=== PATIENT | female | born 2000 | race African-American/Black ===

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

== ENCOUNTER 2019-03-30 07:50 | Emergency (ER) | payer MEDICAID, SELFPAY | END 2019-03-30 09:10 | disposition home or self-care (01) | LOC: NAV ERS 07:50 | DX: J02.8 Acute pharyngitis due to other specified organisms (principal); J30.2 Other seasonal allergic rhinitis | CPT/HCPCS: 87081; 87430; 87804; 99283 ==

== ENCOUNTER 2019-10-13 18:43 | Emergency (ER) | payer OTHER ==
[2019-10-15 13:46] LABS: SARS-CoV-2 MS2 Positive; SARS-CoV-2 N Gene Negative; SARS-CoV-2 S Gene Negative; SARS-CoV-2 by NAA Not Detected (NotDetected); SARS-CoV-2 orf1ab Negative
== END 2019-10-13 19:22 | disposition home or self-care (01) ==
LOC: NAV ERS 18:43
DX: R11.2 Nausea with vomiting, unspecified (principal); J34.89 Other specified disorders of nose and nasal sinuses; Z20.828 Contact with and (suspected) exposure to other viral communicable diseases
CPT/HCPCS: 87635; 99284; U0003

== ENCOUNTER 2020-01-27 06:07 | Emergency (ER) | payer MEDICAID, OTHER ==
[2020-01-27 06:35] LABS: #Eosinphils 0.2 thou/uL (0.0-0.7); #Lymphocytes 2.2 thou/uL (1.20-3.40); #Monocytes 0.6 thou/uL (0.11-0.59); #Neutrophils 4.6 thou/uL (1.40-6.50); %Basophils 0.5 % (0.0-1.0); %Eosinophils 2.7 % (0.0-10.0); %Lymphocytes 28.6 % (28.0-48.0); %Monocytes 7.4 % (0.0-4.0); %Neutrophils 60.7 % (31.0-61.0); Hemoglobin 14.7 g/dL (12.0-16.0); Mean Corpuscular HGB CONC 33.8 g/dL (32.0-36.0); Mean Corpuscular Hemoglobin 31.8 pg (25.0-35.0); Mean Corpuscular Volume 94.1 fL (78.0-98.0); Mean Platelet Volume 7.7 fL (7.4-10.4); Platelet Count 233 thou/uL (130-400); RBC Distribution Width 10.9 % (11.5-14.5); Red Blood Cell (RBC) Count 4.61 mill/uL (4.00-5.20); White Blood Cell (WBC) Count 7.6 thou/uL (4.8-10.8)
[2020-01-27 06:46] LABS: BHCG - Serum Negative (NEGATIVE); Pregs Control Bar Appear? YES (CONTROL BAR)
[2020-01-27 07:02] LABS: ALT (SGPT) 30 U/L (8-55); AST (SGOT) 22 U/L (5-34); Albumin 4.2 g/dL (3.5-5.0); Alcohol Less than 10 mg/dL (Less than 10); Alkaline Phosphatase 74 U/L (40-100); Anion Gap 16 mmol/L (10-20); BUN (Urea Nitrogen) 16 mg/dL (7.0-18.7); Bilirubin, Total 0.7 mg/dL (0.2-1.2); Calc. Creatinine Clearance 0 mL/min (70-130); Calcium 9.3 mg/dL (7.8-10.44); Carbon Dioxide 20 mmol/L (22-29); Chloride 107 mmol/L (98-107); Estimated GFR-MDRD Greater than 90; Glucose 87 mg/dL (70-105); Potassium 3.7 mmol/L (3.5-5.1); Protein, Total 8.2 g/dL (6.0-8.3); Sodium 139 mmol/L (136-145)
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
== END 2020-01-27 08:30 | disposition home or self-care (01) ==
LOC: NAV ERS 06:07
DX: S43.402A Unspecified sprain of left shoulder joint, initial encounter (principal); S39.012A Strain of muscle, fascia and tendon of lower back, initial encounter; S80.02XA Contusion of left knee, initial encounter; V89.2XXA Person injured in unspecified motor-vehicle accident, traffic, initial encounter
CPT/HCPCS: 36415; 70450; 72125; 72128; 72131; 80053; 80307; 84703; 85025

== ENCOUNTER 2020-07-14 16:04 | Emergency (ER) | payer SELFPAY ==
[2020-07-14] MEDS ORDERED: Naproxen 500 MG TAB ONE (16:41)
== END 2020-07-14 18:03 | disposition home or self-care (01) ==
LOC: NAV ERS 16:04
DX: S92.402A Displaced unspecified fracture of left great toe, initial encounter for closed fracture (principal); X58.XXXA Exposure to other specified factors, initial encounter
CPT/HCPCS: 84550

== ENCOUNTER 2021-01-08 08:39 | Emergency (ER) | payer OTHER, SELFPAY ==
[2021-01-08 10:02] LABS: Pregnancy Test - Urine (BHCG) Negative (Negative); Pregu Control Background? CLEAR/WHITE (CLR/WHITE); Pregu Control Bar Appear? YES (CONTROL BAR); Specific Gravity 1.025 (1.002-1.036)
[2021-01-08] MEDS ORDERED: Ketorolac Tromethamine 60 MG/2 ML VIAL ONE (10:13)
== END 2021-01-08 10:36 | disposition home or self-care (01) ==
LOC: NAV ERS 08:39
DX: N92.6 Irregular menstruation, unspecified (principal)
CPT/HCPCS: 81025; 96372; 99284; J1885

== ENCOUNTER 2021-01-09 06:37 | Emergency (ER) | payer SELFPAY ==
[2021-01-09 07:39] LABS: #Basophils 0.1 thou/uL (0.0-0.2); #Eosinphils 0.4 thou/uL (0.0-0.7); #Lymphocytes 2.8 thou/uL (1.20-3.40); #Monocytes 0.9 thou/uL (0.11-0.59); #Neutrophils 5.4 thou/uL (1.40-6.50); %Eosinophils 4.5 % (0.0-10.0); %Lymphocytes 29.3 % (21.0-51.0); %Monocytes 8.9 % (0.0-10.0); %Neutrophils 56.3 % (42.0-75.0); Hemoglobin 13.6 g/dL (12.0-16.0); Mean Corpuscular HGB CONC 32.9 g/dL (32.0-36.0); Mean Corpuscular Hemoglobin 31.4 pg (27.0-31.0); Mean Corpuscular Volume 95.4 fL (78.0-98.0); Mean Platelet Volume 8.2 fL (7.4-10.4); Platelet Count 273 thou/uL (130-400); RBC Distribution Width 11.2 % (11.5-14.5); Red Blood Cell (RBC) Count 4.34 mill/uL (4.20-5.40); White Blood Cell (WBC) Count 9.6 thou/uL (4.8-10.8)
[2021-01-09 07:49] LABS: INR-International Normal Ratio 0.9; Prothrombin Time 11.8 sec (12.0-14.7)
[2021-01-09 07:50] LABS: PTT 33.6 sec (22.9-36.1)
[2021-01-09 07:55] LABS: BHCG - Serum Negative (NEGATIVE)
[2021-01-09 07:56] LABS: Pregs Control Bar Appear? YES (CONTROL BAR)
[2021-01-09 07:57] LABS: ALT (SGPT) 12 U/L (8-55); AST (SGOT) 17 U/L (5-34); Albumin 3.7 g/dL (3.5-5.0); Alkaline Phosphatase 57 U/L (40-110); Anion Gap 13 mmol/L (10-20); BUN (Urea Nitrogen) 15 mg/dL (7.0-18.7); Bilirubin, Total 0.8 mg/dL (0.2-1.2); Calc. Creatinine Clearance 0 mL/min (70-130); Carbon Dioxide 22 mmol/L (22-29); Chloride 106 mmol/L (98-107); Globulin 4.1 g/dL (2.4-3.5); Glucose 78 mg/dL (70-105); Potassium 3.8 mmol/L (3.5-5.1); Protein, Total 7.8 g/dL (6.0-8.3); Sodium 137 mmol/L (136-145)
[2021-01-09] MEDS ORDERED: Fentanyl 100 MCG/2 ML VIAL ONE (07:58)
[2021-01-09] MEDS ORDERED: Sodium Chloride 0.9% 1,000 ML ONE (07:58)
[2021-01-09 08:16] LABS: Bilirubin Negative (Negative); Blood, Urine Negative (Negative); Clarity Clear (Clear); Glucose, Urine (Dipstick) Negative (Negative); Ketone, Urine Negative (Negative); Leukocyte Negative (Negative); Nitrite Negative (Negative); Protein, Urine (Dipstick) Negative (Neg-Trace); Specific Gravity, Urine 1.025 (1.005-1.030); Urobilinogen 0.2 mg/dL (Less than 2)
== END 2021-01-09 09:50 | disposition home or self-care (01) ==
LOC: NAV ERS 06:37
DX: N93.8 Other specified abnormal uterine and vaginal bleeding (principal); R55 Syncope and collapse
CPT/HCPCS: 51701; 80053; 81003; 84703; 85025; 85610; 85730; 96374; J3010; J7050

== ENCOUNTER 2021-04-27 19:33 | Emergency (ER) | payer OTHER, SELFPAY | END 2021-04-27 19:36 | disposition home or self-care (01) | LOC: NAV ERS 19:33 | DX: R59.0 Localized enlarged lymph nodes (principal) | CPT/HCPCS: 99283 ==

== ENCOUNTER 2021-09-28 06:42 | Emergency (ER) | payer SELFPAY ==
[2021-09-28 07:04] LABS: Bilirubin Negative (Negative); Blood, Urine Trace (Negative); Clarity Clear (Clear); Glucose, Urine (Dipstick) Negative (Negative); Ketone, Urine Negative (Negative); Leukocyte Negative (Negative); Nitrite Negative (Negative); Protein, Urine (Dipstick) Negative (Neg-Trace); Specific Gravity, Urine 1.025 (1.005-1.030)
[2021-09-28 07:11] LABS: Bacteria/HPF Rare-Few HPF (None Seen); RBC/HPF 0-3 HPF (0-3); WBC/HPF None Seen HPF (0-3)
[2021-09-28 07:20] LABS: Pregnancy Test - Urine (BHCG) Negative (Negative)
[2021-09-28 07:21] LABS: Pregu Control Background? CLEAR/WHITE (CLR/WHITE); Pregu Control Bar Appear? YES (CONTROL BAR); Specific Gravity 1.025 (1.002-1.036)
== END 2021-09-28 07:33 | disposition home or self-care (01) ==
LOC: NAV ERS 06:42
DX: R11.2 Nausea with vomiting, unspecified (principal); R51.9 Headache, unspecified; Z20.822 Contact with and (suspected) exposure to COVID-19
CPT/HCPCS: 81003; 81015; 81025; 99284; U0003; U0005

== ENCOUNTER 2021-12-10 02:19 | Emergency (ER) | payer SELFPAY ==
[2021-12-10] MEDS ORDERED: Albuterol Sulfate 2.5 mg/3 ml Neb ONE (02:45)
[2021-12-10] MEDS ORDERED: predniSONE 20 MG TAB ONE (03:28)
== END 2021-12-10 03:35 | disposition home or self-care (01) ==
LOC: NAV ERS 02:19
DX: J45.909 Unspecified asthma, uncomplicated (principal)
CPT/HCPCS: 71046; 93005; 94640; 94664; J7512; J7611

== ENCOUNTER 2022-09-03 06:47 | Emergency (ER) | payer BC, SELFPAY | END 2022-09-03 07:27 | disposition home or self-care (01) | LOC: NAV ERS 06:47 | DX: J01.90 Acute sinusitis, unspecified (principal) | CPT/HCPCS: 99283 ==